=== PATIENT | male | born 1965 | race Caucasian/White ===

== ENCOUNTER 2024-07-13 16:22 | Emergency (ER) | payer BC, OTHER ==
[2024-07-13] MEDS: Lidocaine 1% 20 ML MDV INJECT ONE (19:00)
[2024-07-13] MEDS: Diphtheria,Pertussis(Acell),Tetanus Vaccine 0.5 ML Syringe IM ONE (19:22)
[2024-07-13] MEDS: Acetaminophen/HYDROcodone 325-5 MG Tab PO ONE (19:43)
[2024-07-13] MEDS: Cephalexin 500 MG Cap PO ONE (19:44)
== END 2024-07-13 19:55 | disposition home or self-care (01) ==
LOC: JD.ED 16:22
DX: S67.21XA Crushing injury of right hand, initial encounter (principal); S61.411A Laceration without foreign body of right hand, initial encounter; Z23 Encounter for immunization; Z88.8 Allergy status to other drugs, medicaments and biological substances; Z79.899 Other long term (current) drug therapy; Z90.49 Acquired absence of other specified parts of digestive tract; W23.0XXA Caught, crushed, jammed, or pinched between moving objects, initial encounter
CPT/HCPCS: 12004; 73130; 90471; 90715; 99284; A9270; J3490